=== PATIENT | female | born 1965 | race Caucasian/White ===

== ENCOUNTER 2018-06-02 10:44 | Observation (INO) ==
[2018-06-02] MEDS ORDERED: *HR* Promethazine 25 MG/ML VIAL IVP ONE (10:51)
[2018-06-02] MEDS ORDERED: 0.9 % Sodium Chloride 1,000 ML IVC ONE (10:51)
--- NOTE | 2018-06-02 10:53 | Emergency Department Note ---
Disposition Clinical Impression: Hyponatremia syndrome Nausea & vomiting Qualifiers: Vomiting type: unspecified Vomiting Intractability: non-intractable Qualified Code(s): R11.2 - Nausea with vomiting, unspecified Disposition: Admitted As Inpatient Condition: Good Reasons to Return/Additional Instructions: Blood pressure screening: When you had your blood pressure taken, if the top number was greater than 120 or the bottom number was greater than 80, I recommend that you call your primary care provider or a physician of your choice this week to arrange follow-up for further evaluation of your blood pressure. Elevated blood pressures which goes untreated can lead to stroke, heart attack, kidney failure and other life-threatening diseases. If you have an EKG and/or x-ray reading made in the emergency department, it will be reviewed by a stamping machine operator and/or radiologist. If this review changes your diagnosis or treatment, you will be contacted at the phone number you provided. If you were prescribed for outpatient testing: Please call to schedule an appoi ntment for your test. If you have been prescribed an antibiotic: Take it as instructed until it is all finished. If you cannot tolerate that medication for some reason, call your doctor for a replacement. If you had a specimen collected for culture, a culture report takes 48-72 hours to generate. You will be contacted if a change in treatment is needed. Return if your condition worsens or if you have severe pain, fever, vomiting or difficulty breathing. If you have received or been prescribed a medication that may cause drowsiness (tramadol, Phenergan, trazodone, diazepam, lorazepam, hydroxyzine, Xanax, hydrocodone, oxycodone, codeine, or any others) do not drive, drink alcohol, or operate machinery that requires you to be alert for at least 8 hours after taking that medication. Smoking is associated with many medical risks and, if you smoke, we recommend that you contact your primary care provider to discuss smoking cessation options. If you need to find a physician: Go to [email or web address] Or call: [facility], [facility], [facility], Referrals: Mary Banda MD [Primary Care Provider] - (Recheck in 2-3 days if symptoms are persisting.) Forms: ED Satisfaction Letter Nausea/Vomiting/Diarrhea HPI - General Chief complaint: ED Nausea/Vomiting/Diarrhea Stated complaint: vomiting Time Seen by Provider: 06/02/18 10:50 Source: patient, EMS, other ([employer]) Mode of arrival: EMS Limitations: altered mental status (MRDD) Nursing Notes Reviewed: Yes Vital Signs Reviewed: Yes - History of Present Illness HPI Narrative: Patient comes in by EMS with a operations technician. She is been having some nausea and vomiting over the course about 3 days. She was evaluated yesterday at an urgent care and started on Zofran. She is given Zofran initially evening and slept through the night without vomiting until 5 this morning. She did receive another dose of Zofran at 5:30 this continued with dry heaving prompting the operations technician to call an ambulance for her reevaluation. She has not been bringing up any blood or mucus but has brought up some food or bile. When she vomited last night it was Gatorade and some of her evening medications. This morning tenzin bagley has just had dry heaving. She has not had diarrhea or any reported abdominal pain. She has not had fevers or sweats but has had some occasional chills. When they checked her temperature was 98.9. She has not been having sitting cough or shortness of breath nor any chest pain. She has been exposed to some others at the "[employer] workshop" with gastroenteritis complaints. She has no known food illness concerns or recent travel. She has been off Bactrim and Keflex for a left upper extremity cellulitis for about 2 days. The operations technician expresses that she "thinks she has the bug going around" and that they were concerned about her blood sugar". She arrives here by EMS, declined IV access and ambulates without difficulty from the miller into her room and bed. Pt Subjective Complaint: nausea, vomiting Onset (ago): day(s) (3) Description of emesis: food contents, watery, bilious Associated Abdominal Pain: No Severity: none Consistency: intermittent Improves with: other (Zofran) Worsens with: eating Context: sick contacts Associated symptoms: Reports: loss of appetite, nausea/vomiting. Denies: myalgias, chest pain, cough, diaphoresis, fever/chills, headaches, malaise, rash, dysuria, shortness of breath, syncope, weakness - Related Data Home Medications Medication Instructions Recorded Confirmed Buspirone HCl [Buspar] 2 tab PO BID 02/10/15 06/02/18 Cranberry 500 mg PO TID 02/10/15 06/02/18 FLUoxetine HCl [Prozac] 40 mg PO DAILY 02/10/15 06/02/18 Loratadine [Claritin] 10 mg PO DAILY 02/10/15 06/02/18 Lovastatin [Altoprev] 40 mg PO DAILY 02/10/15 06/02/18 Omeprazole [PriLOSEC] 20 mg PO DAILY 02/10/15 06/02/18 RisperiDONE [Risperdal] 2 mg PO BID 02/10/15 06/02/18 metFORMIN 1,000 mg PO DAILY 05/14/17 06/02/18 Donepezil HCl [Aricept] 10 mg PO HS 06/02/18 06/02/18 Lisinopril/Hydrochlorothiazide 2 each PO QAM 06/02/18 06/02/18 [Zestoretic 10-12.5 mg Tablet] Allergies Allergy/AdvReac Type Severity Reaction Status Date / Time Bee Pollen Allergy Hives Verified 10/08/17 09:21 Sulfa (Sulfonamide Allergy Hives Verified 10/08/17 09:21 Antibiotics) venom-honey bee Allergy Hives Verified 10/08/17 09:21 [bee venom (honey bee)] All systems ED: reviewed and negative except as stated. 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 Absent: conjunctival injection - ENT ENT exam: normal exam, normal oropharynx, mucous membranes moist - Neck Neck exam: Present: normal inspection, full ROM, trachea midline. Absent: meningismus, lymphadenopathy - Chest Chest inspection: Present: normal inspection, symmetric chest wall rise - Respiratory Respiratory exam: Present: normal lung sounds bilaterally. Absent: respiratory distress, wheezes, prolonged expiratory phase - Cardiovascular Cardiovascular exam: Present: regular rate, normal rhythm, normal heart sounds. Absent: tachycardia - Abdominal Exam Abdominal exam: Present: soft, Non-Tender, normal bowel sounds. Absent: tenderness, distention, guarding, rebound, rigidity, Hutson's sign, tenderness at McBurney's Point, mass, pulsatile mass, hernia Abdominal tenderness: Absent: RUQ, RLQ, LUQ, LLQ, epigastrium, suprapubic - Extremities Exam Extremities exam: Present: normal inspection, full ROM, normal capillary refill. Absent: tenderness, pedal edema - Expanded Lower Extremity Exam Neurovascular/Tendon exam: Present: normal capillary refill. Absent: motor deficit, sensory deficit, tendon deficit Gait: observed and normal - Back Exam Back exam: Present: normal inspection, full ROM. Absent: tenderness, vertebral tenderness - Neurological Exam Neurological exam: Present: alert, oriented X3, normal gait. Absent: motor sensory deficit - Psychiatric Psychiatric exam: Present: normal affect, normal mood. Absent: agitated, anxious - Skin Skin exam: Present: warm, dry, intact, normal color. Absent: diaphoresis, pallor Course Course Narrative: The patient was evaluated immediately upon arrival. Report by EMS is of normal vital signs with a respiratory rate of 16 and a heart rate of 96, afebrile with an Accu-Chek of 163. I recommended IV fluids and that we check some baseline lab work and a urinalysis. If these are unremarkable I will add promethazine to her Zofran for symptomatic relief of the nausea. With no abdominal pain or tenderness I do not believe imaging will be helpful at this time. This has been discussed with her operations technician and primary care physician who are in agreement. 1149: Patient has significant hyponatremia and will require inpatient observation, saline administration and serial laboratories. This has been discussed with the patient and her operations technician. The operations technician states that this patient usually drinks a lot of water but not in the last couple days. She has been drinking a little bit of Gatorade and having the nausea and vomiting. A page has been placed to Dr. Quijano for inpatient observation. Dr. Quijano has accepted this patient for inpatient observation. Orders have been obtained for her observation. The patient has not yet been able to produce a urine for urinalysis. This will be obtained on the inpatient floor as able. She does complain for nonspecific headache for which Tylenol has been ordered. Vital Signs Temperature 97.8 F 06/02/18 10:48 Pulse Rate 92 06/02/18 10:48 Respiratory Rate 18 06/02/18 10:48 Blood Pressure 130/79 06/02/18 10:48 O2 Sat by Pulse Oximetry 96 06/02/18 10:48 Temperature 97.8 F 06/02/18 10:48 Pulse Rate 92 06/02/18 10:48 Respiratory Rate 18 06/02/18 10:48 Blood Pressure 130/79 06/02/18 10:48 O2 Sat by Pulse Oximetry 96 06/02/18 10:48 Oxygen Delivery Oxygen Delivery Room Air Nausea/Vomiting/Diarrhea - Differential Diagnosis Likely: food poisoning, gastroenteritis, dehydration (Metabolic derangement) - Medical Records Medical records reviewed: Yes I reviewed the patient's medical records. - Lab Data Lab results reviewed: Yes I reviewed the patient's lab results. Result diagrams: 06/02/18 11:10 06/02/18 11:10 Lab Results 06/02/18 06/02/18 06/02/18 Range/Units 11:10 11:10 11:10 WBC 7.5 (4.3-11.1) K/mcL RBC 4.60 (3.82-4.97) M/mcL Hgb 14.1 (11.5-15.4) g/dL Hct 38.4 (35.3-44.9) % MCV 83.5 (83.0-100.0) fL MCH 30.7 (28.0-33.3) pg MCHC 36.7 H (31.6-35.5) g/dL RDW 11.5 (11.5-14.5) % Plt Count 229 (140-400) K/mcL MPV 9.5 (9.4-12.4) fL Immature Gran % 0.3 (0-4) % Seg Neutrophils % 85.2 % Lymphocytes % 7.5 % Monocytes % 6.6 % Eosinophils % 0.3 % Basophils % 0.1 % Neutrophils # 6.4 (1.6-8.9) K/mcL Lymphocytes # 0.6 (0.6-4.6) K/mcL Monocytes # 0.5 (0.0-1.3) K/mcL Eosinophils # 0.0 (0.0-0.6) K/mcL Basophils # 0.0 (0.0-0.2) K/mcL Sodium 116 L* (136-145) mEq/L Potassium 4.1 (3.5-5.1) mEq/L Chloride 83 L (98-107) mEq/L Carbon Dioxide 24 (23-29) mEq/L BUN 12 (6-20) mg/dL Creatinine 0.72 (0.60-1.20) mg/dL Est GFR ( Amer) > 60 (> 60) Est GFR (Non-Af Amer) > 60 (> 60) BUN/Creatinine Ratio 17 (6-26) Glucose 176 H (70-105) mg/dL Calculated Osmolality 246 L (280-300) Lactic Acid 0.8 (0.5-2.2) mmol/L Calcium 9.4 (8.6-10.3) mg/dL
[2018-06-02 11:16] LABS: Basophils % 0.1 %; Eosinophils % 0.3 %; Hematocrit 38.4 % (35.3-44.9); Hemoglobin 14.1 g/dL (11.5-15.4); Immature Granulocytes % 0.3 % (0-4); Lymphocytes # 0.6 K/mcL (0.6-4.6); Lymphocytes % 7.5 %; Mean Corpuscular HGB Conc 36.7 g/dL (31.6-35.5); Mean Corpuscular Hemoglobin 30.7 pg (28.0-33.3); Mean Corpuscular Volume 83.5 fL (83.0-100.0); Mean Platelet Volume 9.5 fL (9.4-12.4); Monocytes # 0.5 K/mcL (0.0-1.3); Monocytes % 6.6 %; Neutrophils # 6.4 K/mcL (1.6-8.9); Platelet Count 229 K/mcL (140-400); Red Cell Distribution Width 11.5 % (11.5-14.5); Segmented Neutrophils % 85.2 %
[2018-06-02 11:43] LABS: BUN/Creatinine Ratio 17 (6-26); Blood Urea Nitrogen 12 mg/dL (6-20); Calcium 9.4 mg/dL (8.6-10.3); Carbon Dioxide 24 mEq/L (23-29); Chloride 83 mEq/L (98-107); Glucose 176 mg/dL (70-105); Osmolality,Calculated 246 (280-300); Potassium 4.1 mEq/L (3.5-5.1); Sodium 116 mEq/L (136-145); eGFR For Non-African Americans > 60 (> 60)
[2018-06-02] MEDS ORDERED: Acetaminophen 325 MG TABLET PO ONE (11:58)
[2018-06-02] MEDS ORDERED: 0.9 % Sodium Chloride 1,000 ML IVC SCH (12:00)
[2018-06-02] MEDS ORDERED: Ondansetron 4 MG/2 ML VIAL IVP PRN ×2 (12:11→15:48)
[2018-06-02] MEDS ORDERED: Naloxone 0.4 MG/ML INJ IVP PRN (12:11)
[2018-06-02] MEDS ORDERED: *HR* Dextrose 50 % in Water (Syg) 50 ML SYRINGE IVP PRN (12:11)
[2018-06-02] MEDS ORDERED: *HR* Promethazine 25 MG/ML VIAL IVP PRN (12:11)
[2018-06-02] MEDS ORDERED: MOM Conc 10 ML UD.LIQ PO PRN (12:11)
[2018-06-02] MEDS ORDERED: Mag Hydrox/Al Hydrox/Simeth 30 ML UDC PO PRN (12:11)
[2018-06-02] MEDS ORDERED: Dextrose Gel 15 GM/37.5 ML TUBE PO PRN ×2 (12:11)
[2018-06-02] MEDS ORDERED: D5% in Water 1,000 ML IVC PRN (12:11)
[2018-06-02] MEDS ORDERED: *HR* Dextrose 50 % in Water (Vial) 50 ML VIAL IVP PRN (13:00)
[2018-06-02] MEDS: 0.9 % Sodium Chloride 1,000 ML IVC SCH ×2 (13:27→20:16)
[2018-06-02 14:35] LABS: Bilirubin,Urine Negative (Negative); Blood,Urine Negative (Negative); Clarity,Urine Clear (Clear); Color,Urine Yellow (Yellow); Glucose,Urine (UA) Normal (Normal); Ketones,Urine 80 mg/dL (Negative); Leukocyte Esterase,Urine Negative (Negative); Nitrite,Urine Negative (Negative); PH,Urine 6.5 pH Units (5.0-8.0); Protein,Urine Trace mg/dL (Neg-Trace); Specific Gravity,Urine 1.025 (1.010-1.025); Urobilinogen,Urine Normal (Normal)
[2018-06-02] MEDS ORDERED: CRANBERRY 500 MG PO SCH (15:00)
--- NOTE | 2018-06-02 15:39 | Internal Med History&Physical ---
Date of Encounter: 06/02/18 Time of Encounter: 15:10 Assessment and Plan (1) Acute gastroenteritis Current visit: Yes Status: Acute IV fluids have been ordered. Anti-emetics will be given as needed. (2) Hyponatremia Current visit: Yes Status: Acute Acute. Sodium level was 138 on 05/07/2018. Likely due to vomiting. Continue IV fluids and recheck labs in a.m. (3) Hypertension Current visit: Yes Status: Chronic Continue lisinopril/HCTZ. Qualifiers: Hypertension type: essential hypertension Qualified Code(s): I10 - Essential (primary) hypertension (4) DM type 2 (diabetes mellitus, type 2) Current visit: Yes Status: Acute Hemoglobin A1c was 6.6% on 05/07/2018. Continue metformin. Qualifiers: Diabetes mellitus correction insulin use: without intermediate designer use Diabetes mellitus complication status: without complication Qualified Code(s): E11.9 - Type 2 diabetes mellitus without complications Internal Medicine - H&P: HPI Chief complaint: Vomiting Admitted From: Emergency Dept Plans for Post Hospital Care: Home History of present illness: Ms. Jones is a 52 year old female who came to emergency room after developing dry heaves approximately 0500 today. She had 2 episodes of emesis onset approximately 10:00 without visible blood. Her caregiver who is in the room reports the's patient had chills but denies diarrhea or fever. Patient denies pain. She was evaluated in emergency room and was found to have hyponatremia with sodium 116. She was admitted to [facility] floor for ongoing care needs. No known contacts have similar symptoms. Her GI history is negative for known disorders of liver gallbladder or exocrine pancreas. Past Med Surg Social Fam HX - Past Medical History Medical history: diabetes, GERD, hyperlipidemia, hypertension Additional medical history: mild moderate MR, depression, strabismus, high blood pressure, dry skin Psychiatric history: anxiety, other - Past Surgical History Additional surgical history: hernia repair x 3 - Social History Smoking Status: Never smoker Smokeless Tobacco Status: No Alcohol use: none Drug use: none Internal Medicine - H&P: Meds Buspirone HCl [Buspar] 2 tab PO BID 02/10/15 [History] Cranberry 500 mg PO TID 02/10/15 [History] FLUoxetine HCl [Prozac] 40 mg PO DAILY 02/10/15 [History] Loratadine [Claritin] 10 mg PO DAILY 02/10/15 [History] Lovastatin [Altoprev] 40 mg PO DAILY 02/10/15 [History] Omeprazole [PriLOSEC] 20 mg PO DAILY 02/10/15 [History] RisperiDONE [Risperdal] 2 mg PO BID 02/10/15 [History] metFORMIN 1,000 mg PO DAILY 05/14/17 [History] Donepezil HCl [Aricept] 10 mg PO HS 06/02/18 [History] Lisinopril/Hydrochlorothiazide [Zestoretic 10-12.5 mg Tablet] 2 each PO QAM 06/02/18 [History] Allergy/AdvReac Type Severity Reaction Status Date / Time Bee Pollen Allergy Hives Verified 10/08/17 09:21 Sulfa (Sulfonamide Allergy Hives Verified 10/08/17 09:21 Antibiotics) venom-honey bee Allergy Hives Verified 10/08/17 09:21 [bee venom (honey bee)] All Systems PM: A 10-system review of systems was performed and is negative for pertinent findings except as documented above in the HPI. Review of systems: Gen.: Her weight has been stable for several months Cardiovascular: She has history of hypertension but no known CT heart failure angina DVT or pulmonary embolus Respiratory: She is a lifelong nonsmoker and has no known chronic lung disease GI: As per history of present illness : No history of hematuria dysuria or kidney stones Neurologic: No history of large distribution strokes or seizures. She has MRDD Endocrine: She has had DM 2 for several years. She has hyperlipidemia but no known thyroid disease Hematology/oncology: No history of blood disorders cancers or anemia Psychiatric: She has depression but no known anxiety other mental health issues [place] skeletal: She denies arthritis gout or other bone joint or muscle disorders. - Constitutional Vitals: Temp Pulse Resp BP Pulse Ox 98.3 F 84 18 120/74 98 06/02/18 12:58 06/02/18 12:58 06/02/18 12:58 06/02/18 12:58 06/02/18 12:58 Exam: Gen.: She is well-developed well-nourished female resting comfortably in bed who appears in no acute distress HEENT: Head is atraumatic and normocephalic. Eyes: She has disconjugate gaze with right exotropia and left eye dominant. She will correct to look out of her right eye directly when her left eye is covered. Neck: There is no thyromegaly or adenopathy noted. Heart: Regular without murmurs gallops or ectopics Lungs: No wheezes or crackles are heard. Abdomen: Soft and nontender. No masses or guarding are noted. Extremities: There is no cyanosis edema or clubbing noted. Dorsalis pedis and posterior tibial pulses are 1-2 over 2 bilaterally. Neurologic: Mental status: She is talkative and a good historian. Cranial nerves: Smile is symmetric. Forehead wrinkles bilaterally. Tongue protrudes midline. EOMI. Motor: There is no pronator drift. Cerebellar: Finger to nose is intact bilaterally. Skin: Warm and dry Internal Med - H&P Results - Labs CBC & Chem 7: 06/02/18 11:10 06/02/18 11:10 Labs: Short CBC 06/02/18 Range/Units 11:10 WBC 7.5 (4.3-11.1) K/mcL Hgb 14.1 (11.5-15.4) g/dL Hct 38.4 (35.3-44.9) % Plt Count 229 (140-400) K/mcL Neutrophils # 6.4 (1.6-8.9) K/mcL BMP 06/02/18 11:10 Sodium 116 L* Potassium 4.1 Chloride 83 L Carbon Dioxide 24 BUN 12 Creatinine 0.72 Glucose 176 H Calcium 9.4 Urine 06/02/18 Range/Units 14:15 Urine Color Yellow (Yellow) Urine Clarity Clear (Clear) Urine pH 6.5 (5.0-8.0) pH Units Ur Specific [place] 1.025 (1.010-1.025) Urine Protein Trace (Neg-Trace) mg/dL Urine Glucose (UA) Normal (Normal) mg/dL
[2018-06-02] MEDS ORDERED: Ibuprofen 600 MG TABLET PO PRN (16:13)
[2018-06-02] MEDS: Insulin LISPRO 300 UNITS/3 ML VIAL SQ SCH (17:06)
[2018-06-02] MEDS: risperiDONE 1 MG TABLET PO SCH (20:17)
[2018-06-03] MEDS: 0.9 % Sodium Chloride 1,000 ML IVC SCH (04:27)
[2018-06-03 06:58] LABS: Basophils % 0.3 %; Eosinophils # 0.1 K/mcL (0.0-0.6); Hematocrit 34.2 % (35.3-44.9); Hemoglobin 12.5 g/dL (11.5-15.4); Immature Granulocytes % 0.3 % (0-4); Mean Corpuscular HGB Conc 36.5 g/dL (31.6-35.5); Mean Corpuscular Hemoglobin 31.1 pg (28.0-33.3); Mean Corpuscular Volume 85.1 fL (83.0-100.0); Mean Platelet Volume 9.6 fL (9.4-12.4); Monocytes # 0.5 K/mcL (0.0-1.3); Monocytes % 9.3 %; Neutrophils # 4.1 K/mcL (1.6-8.9); Platelet Count 216 K/mcL (140-400); Red Blood Count 4.02 M/mcL (3.82-4.97); Red Cell Distribution Width 11.4 % (11.5-14.5); Segmented Neutrophils % 71.1 %
[2018-06-03 07:20] LABS: BUN/Creatinine Ratio 12 (6-26); Blood Urea Nitrogen 8 mg/dL (6-20); Calcium 8.4 mg/dL (8.6-10.3); Carbon Dioxide 25 mEq/L (23-29); Chloride 93 mEq/L (98-107); Glucose 138 mg/dL (70-105); Osmolality,Calculated 257 (280-300); Sodium 123 mEq/L (136-145); eGFR For Non-African Americans > 60 (> 60)
[2018-06-03] MEDS: risperiDONE 1 MG TABLET PO SCH (07:59)
[2018-06-03] MEDS ORDERED: *HR* Metformin 500 MG TABLET PO SCH (08:00)
[2018-06-03] MEDS: Insulin LISPRO 300 UNITS/3 ML VIAL SQ SCH (08:08)
[2018-06-03 08:27] VITALS: BP 139/75
[2018-06-03] MEDS ORDERED: Loratadine 10 MG TABLET PO SCH (09:00)
[2018-06-03] MEDS ORDERED: FLUoxetine 20 MG CAPSULE PO SCH (09:00)
--- NOTE | 2018-06-03 09:48 | Discharge Summary ---
Date of Encounter: 06/03/18 Time of Encounter: 09:41 - Discharge Diagnosis (1) Acute gastroenteritis Priority: Primary Status: Acute (2) Hyponatremia Priority: Secondary Status: Acute (3) Hypertension Priority: Secondary Status: Chronic Qualifiers: Hypertension type: essential hypertension Qualified Code(s): I10 - Essential (primary) hypertension (4) DM type 2 (diabetes mellitus, type 2) Priority: Secondary Status: Chronic Qualifiers: Diabetes mellitus salvage determiner insulin use: without usp use Diabetes mellitus complication status: without complication Qualified Code(s): E11.9 - Type 2 diabetes mellitus without complications Hospital course: Ms. Jones is a 52 year old female who came to emergency room after developing dry heaves approximately 0500 today. She had 2 episodes of emesis onset approximately 10:00 without visible blood. Her caregiver who is in the room reports the's patient had chills but denies diarrhea or fever. Patient denies pain. She was evaluated in emergency room and was found to have hyponatremia with sodium 116. She was admitted to [facility] floor for ongoing care needs. Initial orders were written by the emergency room physician. I saw her on June 02 and performed the history and physical. She was given IV normal saline. Antiemetics were given as needed. Her vomiting resolved and she tolerated adequate amounts of oral food and fluid intake. When I saw her on June 03 she had no complaints and wished to be discharged home which I felt was reasonable. Her sodium level had risen to 123. She remained asymptomatic from hyponatremia throughout her hospital stay. Lisinopril/HCTZ dose will be reduced to 1 pill daily to avoid worsening electrolyte imbalance. Her PCP can monitor blood pressure and adjust medications as needed. She will follow with Dr. Banda within 1 week. - Time Spent with Patient Total time spent providing and/or coordinating discharge services: - Discharge Medications Prescriptions: New Lisinopril-HCTZ 10-12.5 [Prinzide 10-12.5] 1 each PO DAILY 365 Days tablet Continue metFORMIN 1,000 mg PO DAILY Buspirone HCl [Buspar] 2 tab PO BID RisperiDONE [Risperdal] 2 mg PO BID Cranberry 500 mg PO TID Omeprazole [PriLOSEC] 20 mg PO DAILY Loratadine [Claritin] 10 mg PO DAILY FLUoxetine HCl [Prozac] 40 mg PO DAILY Lovastatin [Altoprev] 40 mg PO DAILY Donepezil HCl [Aricept] 10 mg PO HS Discontinued Lisinopril/Hydrochlorothiazide [Zestoretic 10-12.5 mg Tablet] 2 each PO QAM Home Medications: Buspirone HCl [Buspar] 2 tab PO BID 02/10/15 [History] Cranberry 500 mg PO TID 02/10/15 [History] FLUoxetine HCl [Prozac] 40 mg PO DAILY 02/10/15 [History] Loratadine [Claritin] 10 mg PO DAILY 02/10/15 [History] Lovastatin [Altoprev] 40 mg PO DAILY 02/10/15 [History] Omeprazole [PriLOSEC] 20 mg PO DAILY 02/10/15 [History] RisperiDONE [Risperdal] 2 mg PO BID 02/10/15 [History] metFORMIN 1,000 mg PO DAILY 05/14/17 [History] Donepezil HCl [Aricept] 10 mg PO HS 06/02/18 [History] Lisinopril-HCTZ 10-12.5 [Prinzide 10-12.5] 1 each PO DAILY 365 Days tablet 06/03/18 [Rx] Allergies/Adverse Reactions: Allergy/AdvReac Type Severity Reaction Status Date / Time Bee Pollen Allergy Hives Verified 10/08/17 09:21 Sulfa (Sulfonamide Allergy Hives Verified 10/08/17 09:21 Antibiotics) venom-honey bee Allergy Hives Verified 10/08/17 09:21 [bee venom (honey bee)] Date of admission: 06/02/18 12:05 Primary care physician: Mary aBnda - Constitutional Vitals: Temp Pulse Resp BP Pulse Ox 98.1 F 100 18 139/75 96 06/03/18 06:20 06/03/18 06:20 06/03/18 06:20 06/03/18 06:20 06/03/18 06:20 - Patient Status Disposition: Home, Self-Care Condition: Good - Discharge Instructions Follow Up With: Mary Banda MD [Primary Care Provider] - 1 week - Diet and Activity Activity: resume usual activities as tolerated Diet: advance to your usual diet
== END 2018-06-03 10:40 | disposition home or self-care (01) ==
LOC: EMEROOPIK 10:44 → INPPIK 10:44
PROVIDERS: ADMIT Internal Medicine; ATTEND Internal Medicine